=== PATIENT | male | born 1945 | race Caucasian/White ===

== ENCOUNTER 2020-06-19 09:08 | Outpatient (CLI) | payer OTHER, SELFPAY ==
--- NOTE | 2020-06-19 09:47 | ECG_ITS ---
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 Interpretive Statements NAME OF STUDY: LEXISCAN SESTAMIBI STRESS TEST INDICATION: Chest Pain PROCEDURE: At the baseline, the EKG revealed normal sinus rhythm with some nonspecific T wave changes in the inferolateral leads.. The baseline blood pressure was 169/75 mm Hg with a heart rate of 66 beats/min. Lexiscan was infused over a period of 20 seconds. A total of 0.4 milligrams of Lexiscan was infused. The stress phase was continued for a total of 5 minutes. Heart rate at the end of the stress phase was 67 with a blood pressure 146/89. The EKG at the peak infusion revealed no significant changes. Sestamibi was injected 20 seconds after the Lexiscan infusion. Blood pressure at the end of the recovery phase was 146/84 with a heart rate of 66 per minute. CONCLUSION: 1. No significant EKG changes with the LexiScan infusion 2. No LexiScan induced chest pain or cardiac arrhythmia 3. Normal blood pressure and heart rate response 4. Sestamibi/sestamibi perfusion scan pending; see separate report. Electronically Signed On 06-23-2020 17:24:54 CDT by Dale Joyce M.D. [id number]
--- NOTE | 2020-06-19 09:47 | NMCV_ITS ---
NM ashli perf SPECT r/s* [id number] Manjeet Her Age: 74 Gender: M : 1945 Exam Date: 06/19/2020 09:47 Ordering Phys: Dale Joyce MD ([email or web address]) Technologist: HERBIE Mancilla Exam Location: [facility] Indications: ASHD, SOB STRESS TEST Please see separate stress test report in [facility] for full findings IMAGE PROTOCOL Rest/Stress 1 Lexiscan Day Radiopharmaceutical Dose (mCi) Administration Site Administered by Rest: Tc-99m 10.8 IV HERBIE Mancilla Sestamibi Stress:Tc-99m 32.4 IV HERBIE Mancilla Sestamibi Rest: 19-Jun-2020 60 Discovery 630 Stress: 19-Jun-2020 45 Discovery 630 0.4mg Lexiscan. Images obtained in supine and prone position. SPECT RESULTS Technical Quality: Good Raw Data Analysis: Normal Image Corrections: No attenuation or motion correction applied Summed Stress Score: 0 Summed Rest Score: 0 Summed Difference Score: 0 PERFUSION FINDINGS A small area of slightly decreased Vasotec in the apical inferior wall region with no significant reversibility FUNCTIONAL RESULTS (calculated via Gated SPECT) Stress Image LV EF (%): 66 Stress EDV (mL):102 TID: 0.98 Stress ESV (mL):35 FUNCTIONAL FINDINGS: Segmental wall motion analysis revealed no gross wall motion normalities IMPRESSIONS 1. Myocardial perfusion imaging revealing a small area of slightly decreased persistent tracer uptake in the inferior wall region, most likely represent attenuation artifact. 2. Normal LV ejection fraction of 66%. 3. LV wall motion analysis revealing no gross wall motion normalities. 4. Normal LV volume. No significant coronary ischemia, based on the above findings Dr Dale Joyce MD [facility] (Electronically Signed) Final Date: 19 June 2020 17:24 S
[2020-06-19 10:13] VITALS: BMI 28.2
[2020-06-19 11:10] VITALS: BP 147/65; PULSE 73
[2020-06-19] MEDS: regadenoson 0.4 Mg/5 ml Syringe IVP (11:10)
== END 2020-06-19 09:09 | disposition home or self-care (01) ==
LOC: CDL 09:09
PROVIDERS: PCP Family Medicine; Visit Provider Internal Medicine Cardiovascular Disease
DX: R06.02 Shortness of breath (principal); I25.10 Atherosclerotic heart disease of native coronary artery without angina pectoris; R07.9 Chest pain, unspecified
CPT/HCPCS: 78452; 93017; A9500; J2785

== ENCOUNTER 2021-11-19 06:00 | Outpatient (RCR) | payer OTHER, SELFPAY | END 2021-11-21 23:55 | disposition home or self-care (01) | LOC: WOT 06:00 | PROVIDERS: PCP Family Medicine; Visit Provider Family Medicine | DX: G81.91 Hemiplegia, unspecified affecting right dominant side (principal) | CPT/HCPCS: 97165 ==

== ENCOUNTER 2021-11-20 06:00 | Outpatient (RCR) | payer OTHER, SELFPAY | END 2021-11-21 23:55 | disposition home or self-care (01) | LOC: WPT 06:00 | PROVIDERS: PCP Family Medicine; Visit Provider Family Medicine | DX: G81.91 Hemiplegia, unspecified affecting right dominant side (principal) | CPT/HCPCS: 97162 ==

== ENCOUNTER 2021-11-22 06:00 | Outpatient (RCR) | payer OTHER, SELFPAY | END 2021-12-21 23:59 | disposition home or self-care (01) | LOC: WPT 06:00 | PROVIDERS: PCP Family Medicine; Visit Provider Family Medicine | DX: G81.91 Hemiplegia, unspecified affecting right dominant side (principal) | CPT/HCPCS: 97110; 97530 ==

== ENCOUNTER 2021-12-10 | Outpatient (RCR) | payer OTHER, SELFPAY | END 2021-12-21 23:59 | disposition home or self-care (01) | LOC: WOT | PROVIDERS: PCP Family Medicine; Visit Provider Family Medicine | DX: G81.91 Hemiplegia, unspecified affecting right dominant side (principal) | CPT/HCPCS: 97530 ==

== ENCOUNTER 2021-12-22 06:00 | Outpatient (RCR) | payer OTHER, SELFPAY | END 2022-01-21 23:59 | disposition home or self-care (01) | LOC: WPT 06:00 | PROVIDERS: PCP Family Medicine; Visit Provider Family Medicine | DX: M54.16 Radiculopathy, lumbar region (principal) | CPT/HCPCS: 97110; 97530 ==